=== PATIENT | male | born 1970 | race Caucasian/White ===

== ENCOUNTER → 2019-05-27 | Outpatient (CLI) | payer OTHER, MEDICARE ==
--- NOTE | 2019-05-27 11:29 | NEURO WORKBENCH EEG REPORT ---
EEG Report Patient: Gwyn Hyde ID: [id number] Referring Doctor: Miguel Torrez MD DOS: 04/26/2019 Medications: Prozac, abilify, prazosin, vitamin D3, CoQ10, super omega 3 EPA/DHA, cognitex with brain shield (gastrodin, NAD cell regenerator, nicotinamide, riboside History This is a 48 year old right handed man with a history of traumatic brain injury, neck surgery, anxiety, migraines with episodes of right side shaking, right leg becomes weak and twitches. This EEG was requested for possible seizures. EEG Interpretation This EEG was recorded in the awake and minimal drowsy states. The awake EEG is characterized by a well-organized background with a well-developed posterior dominant rhythm of 9Hz. The remained of the background consisted of alpha and beta activity. There was mu present. Drowsiness was characterized by slowing of the background rhythms. Photic stimulation resulted in a good driving response. Hyperventilation resulted in no significant changes. There were no epileptiform abnormalities. The EKG showed a regular rhythm. EEG Classification Normal EEG Impression This EEG is within normal limits for age in the awake and minimal drowsy states. INTERPRETING NEUROLOGIST: Bertha Campbell MD, FRCPC Board Certified in Neurology, with special qualification in Child Neurology, and in Clinical Neurophysiology [facility]
== END ==
LOC: NEURO 08:27
PROVIDERS: ATTEND Pediatrics
DX: Z87.820 Personal history of traumatic brain injury (principal); R41.0 Disorientation, unspecified; R51 Headache; R25.8 Other abnormal involuntary movements
CPT/HCPCS: 95819